=== PATIENT | female | born 1980 | race African-American/Black ===

== ENCOUNTER 2017-04-07 11:52 | Inpatient (IN) | payer SELFPAY ==
[~2017-04-07] VITALS: Ht 165.1 cm; Wt 89.4 kg
[~2017-04-07 11:52] MED LIST: SULF-165 PO
[2017-04-07] MEDS ORDERED: ACETAMINOPHEN 325MG TABLET PO STA (12:41)
[2017-04-07] MEDS ORDERED: MORPHINE SULFATE 4 MG/ML CPJ (NOT FOR IM USE) IV STA (12:41)
[2017-04-07] MEDS ORDERED: ONDANSETRON HCL 4MG/2ML VIAL IV STA (12:41)
[2017-04-07] MEDS ORDERED: SODIUM CHLORIDE 0.9% 1000ML BAG (SEPSIS BOLUS) IV ONE (12:45)
[2017-04-07] MEDS ORDERED: VANCOMYCIN 1 G PREMIX 200 ML IV ONE (12:45)
[2017-04-07] MEDS ORDERED: PIPERACILLIN/TAZ 3.375G PREMIX 50 ML IV ONE (12:45)
[2017-04-07 13:07] LABS: BASOPHILS % 0.5 % (0.0-2.0); EOSINOPHILS % 0.6 % (0.0-5.0); HEMATOCRIT. 33.2 % (36.0-48.0); HEMOGLOBIN. 10.9 g/dL (12.0-16.0); LYMPHOCYTES % 10.2 % (20.0-50.0); MEAN CORPUSCULAR HEMOGLOBIN 26.7 pg (28.0-32.0); MEAN CORPUSCULAR VOLUME 81.4 fL (81.0-99.0); MEAN PLATELET VOLUME 6.6 fl (7.4-10.4); MONOCYTES % 7.6 % (2.0-8.0); NEUTROPHILS % 81.1 % (40.0-76.0); PLATELET 726 x1000/uL (130-400); RED BLOOD CELL COUNT 4.08 mill/uL (4.2-5.4); RED CELL DISTRIBUTION WIDTH 17.8 % (11.6-14.6)
[2017-04-07 13:15] LABS: HCG SCREEN NEGATIVE; INR 1.1; PROTHROMBIN TIME 11.7 sec
[2017-04-07 13:22] LABS: CARBON DIOXIDE 26 mEq/L (21-32); CHLORIDE 99 mEq/L (98-107)
[2017-04-07] MEDS ORDERED: CLINDAMYCIN 600 MG in DEXTROSE 5% WATER 50 ML IV ONE (14:30)
[2017-04-07 14:52] LABS: CLARITY URINE CLEAR (CLEAR); COLOR URINE YELLOW (YELLOW); GLUCOSE URINE NEGATIVE (NEGATIVE); KETONES URINE NEGATIVE (NEGATIVE); LEUKOCYTE ESTERASE URINE 3+ (NEGATIVE); NITRITE URINE POSITIVE (NEGATIVE); OCCULT BLOOD URINE NEGATIVE (NEGATIVE); PROTEIN URINE NEGATIVE (NEGATIVE); SPECIFIC GRAVITY URINE 1.007 (1.005-1.030); UROBILINOGEN URINE 0.2 E.U./dL (0.2-1.0)
[2017-04-07 23:45] VITALS: BP 105/49
[2017-04-08] VITALS: BP 100/48
[2017-04-08] MEDS ORDERED: OXYCONTIN (00:09)
[2017-04-08] MEDS: SODIUM CHLORIDE 0.9% 1,000 ML IV SCH ×2 (01:43→17:55)
[2017-04-08] MEDS: MORPHINE SULFATE 4 MG/ML CPJ (NOT FOR IM USE) IV PRN ×4 (01:44→21:13)
[2017-04-08 04:00] VITALS: BP 94/45
[2017-04-08] MEDS: ZOLPIDEM TARTRATE 5MG TABLET PO PRN (04:04)
[2017-04-08] MEDS: CLINDAMYCIN 300 MG in DEXTROSE 5% WATER 50 ML IV SCH ×4 (05:15→23:55)
[2017-04-08 06:23] LABS: CARBON DIOXIDE 25 mEq/L (21-32); CHLORIDE 105 mEq/L (98-107)
[2017-04-08 06:48] LABS: HEMATOCRIT 28.5 % (36.0-48.0); HEMOGLOBIN 9.1 g/dL (12.0-16.0); MEAN CORPUSCULAR HEMOGLOBIN 26.4 pg (28.0-32.0); PLATELET 581 x1000/uL (130-400); RED BLOOD CELL COUNT 3.44 mill/uL (4.2-5.4); RED CELL DISTRIBUTION WIDTH 17.9 % (11.6-14.6)
[2017-04-08 08:00] VITALS: BP 81/47
[2017-04-08] MEDS ORDERED: ENOXAPARIN 40MG/0.4ML SYR SUBCUT SCH (09:00)
[2017-04-08] MEDS: ENOXAPARIN 30MG/0.3ML SYR SUBCUT SCH ×2 (09:31→21:13)
[2017-04-08 12:00] VITALS: BP 85/43
[2017-04-08] MEDS: PIPERACILLIN/TAZ 3.375G PREMIX 50 ML IV SCH ×3 (14:23→23:17)
[2017-04-08 16:00] VITALS: BP 109/62
[2017-04-08] MEDS ORDERED: WARFARIN SODIUM 7.5MG TABLET PO SCH (18:00)
[2017-04-08 20:00] VITALS: BP 94/51
[2017-04-09] VITALS: BP 100/56
[2017-04-09] MEDS: ZOLPIDEM TARTRATE 5MG TABLET PO PRN ×2 (00:19→23:28)
[2017-04-09 04:00] VITALS: BP 101/61
[2017-04-09] MEDS: MORPHINE SULFATE 4 MG/ML CPJ (NOT FOR IM USE) IV PRN ×5 (04:15→23:28)
[2017-04-09] MEDS: PIPERACILLIN/TAZ 3.375G PREMIX 50 ML IV SCH ×4 (05:53→23:28)
[2017-04-09 05:57] LABS: INR 1.1; PROTHROMBIN TIME 11.8 sec
[2017-04-09] MEDS: CLINDAMYCIN 300 MG in DEXTROSE 5% WATER 50 ML IV SCH ×2 (06:26→12:43)
[2017-04-09 08:00] VITALS: BP 105/63
[2017-04-09] MEDS: ENOXAPARIN 30MG/0.3ML SYR SUBCUT SCH ×2 (09:20→20:58)
[2017-04-09 12:00] VITALS: BP 107/58
[2017-04-09 16:00] VITALS: BP 89/45
[2017-04-09] MEDS: SODIUM CHLORIDE 0.9% 1,000 ML IV SCH (17:15)
[2017-04-09] MEDS ORDERED: WARFARIN SODIUM 7.5MG TABLET PO NR (18:00)
[2017-04-09 20:00] VITALS: BP 98/59
[2017-04-09] MEDS: ASCORBIC ACID 250 MG TABLET PO SCH (20:58)
[2017-04-10] VITALS: BP 98/46
[2017-04-10 04:00] VITALS: BP 105/55
[2017-04-10] MEDS: PIPERACILLIN/TAZ 3.375G PREMIX 50 ML IV SCH ×4 (05:07→23:37)
[2017-04-10] MEDS: MORPHINE SULFATE 4 MG/ML CPJ (NOT FOR IM USE) IV PRN ×5 (05:08→21:54)
[2017-04-10] MEDS: SODIUM CHLORIDE 0.9% 1,000 ML IV SCH ×2 (06:35→20:04)
[2017-04-10 07:26] LABS: INR 1.4
[2017-04-10 08:00] VITALS: BP 95/58
[2017-04-10] MEDS: MULTIVITAMINS,THER W-MINERALS TABLET PO SCH (08:40)
[2017-04-10] MEDS: ZINC SULFATE 220 MG ( 50 ) CAPSULE PO SCH (08:40)
[2017-04-10] MEDS: ASCORBIC ACID 250 MG TABLET PO SCH ×2 (08:40→20:23)
[2017-04-10] MEDS: ENOXAPARIN 30MG/0.3ML SYR SUBCUT SCH ×2 (08:46→20:23)
[2017-04-10] MEDS ORDERED: TRAMADOL 50MG TABLET PO PRN (11:00)
[2017-04-10 12:00] VITALS: BP 127/75
[2017-04-10 16:00] VITALS: BP 108/60
[2017-04-10] MEDS ORDERED: WARFARIN SODIUM 10MG TABLET PO SCH (18:00)
[2017-04-10] MEDS: ACETAMINOPHEN 325MG TABLET PO PRN (20:23)
[2017-04-10] MEDS: ZOLPIDEM TARTRATE 5MG TABLET PO PRN (21:54)
[2017-04-11] VITALS: BP 115/47
[2017-04-11] MEDS: MORPHINE SULFATE 4 MG/ML CPJ (NOT FOR IM USE) IV PRN ×5 (01:58→20:30)
[2017-04-11 04:00] VITALS: BP 122/50
[2017-04-11] MEDS: PIPERACILLIN/TAZ 3.375G PREMIX 50 ML IV SCH ×4 (05:28→23:46)
[2017-04-11 05:50] LABS: INR 1.7; PROTHROMBIN TIME 18.1 sec
[2017-04-11 08:00] VITALS: BP 100/49
[2017-04-11] MEDS: ZINC SULFATE 220 MG ( 50 ) CAPSULE PO SCH (08:44)
[2017-04-11] MEDS: MULTIVITAMINS,THER W-MINERALS TABLET PO SCH (08:44)
[2017-04-11] MEDS: ASCORBIC ACID 250 MG TABLET PO SCH ×2 (08:44→20:31)
[2017-04-11] MEDS: ENOXAPARIN 30MG/0.3ML SYR SUBCUT SCH ×2 (08:45→20:34)
[2017-04-11] MEDS: SODIUM CHLORIDE 0.9% 1,000 ML IV SCH (11:58)
[2017-04-11 12:00] VITALS: BP 101/59
[2017-04-11] MEDS: ONDANSETRON HCL 4MG/2ML VIAL IV PRN (12:49)
[2017-04-11 16:00] VITALS: BP 99/52
[2017-04-11] MEDS ORDERED: WARFARIN SODIUM 7.5MG TABLET PO SCH (18:00)
[2017-04-11 20:00] VITALS: BP 103/47
[2017-04-11] MEDS: ZOLPIDEM TARTRATE 5MG TABLET PO PRN (23:46)
[2017-04-12] VITALS: BP 99/55
[2017-04-12] MEDS: MORPHINE SULFATE 4 MG/ML CPJ (NOT FOR IM USE) IV PRN ×6 (01:15→22:15)
[2017-04-12] MEDS: SODIUM CHLORIDE 0.9% 1,000 ML IV SCH ×2 (01:23→23:22)
[2017-04-12 02:02] LABS: BASOPHILS % 0.9 % (0.0-2.0); EOSINOPHILS % 2.5 % (0.0-5.0); HEMATOCRIT. 25.9 % (36.0-48.0); HEMOGLOBIN. 8.4 g/dL (12.0-16.0); LYMPHOCYTES % 15.8 % (20.0-50.0); MEAN CORPUSCULAR HEMOGLOBIN 26.6 pg (28.0-32.0); MEAN PLATELET VOLUME 6.8 fl (7.4-10.4); MONOCYTES % 10.7 % (2.0-8.0); NEUTROPHILS % 70.1 % (40.0-76.0); PLATELET 607 x1000/uL (130-400); RED BLOOD CELL COUNT 3.15 mill/uL (4.2-5.4); RED CELL DISTRIBUTION WIDTH 17.3 % (11.6-14.6)
[2017-04-12 02:33] LABS: CARBON DIOXIDE 29 mEq/L (21-32); CHLORIDE 105 mEq/L (98-107)
[2017-04-12] MEDS: ACETAMINOPHEN 325MG TABLET PO PRN (03:56)
[2017-04-12 04:00] VITALS: BP 102/47
[2017-04-12] MEDS: PIPERACILLIN/TAZ 3.375G PREMIX 50 ML IV SCH ×3 (05:24→17:58)
[2017-04-12 07:18] LABS: INR 3.1; PROTHROMBIN TIME 32.7 sec
[2017-04-12 08:00] VITALS: BP 99/57
[2017-04-12] MEDS: ASCORBIC ACID 250 MG TABLET PO SCH ×2 (08:15→21:06)
[2017-04-12] MEDS: ZINC SULFATE 220 MG ( 50 ) CAPSULE PO SCH (08:15)
[2017-04-12] MEDS: MULTIVITAMINS,THER W-MINERALS TABLET PO SCH (08:15)
[2017-04-12] MEDS: ENOXAPARIN 30MG/0.3ML SYR SUBCUT SCH (08:21)
[2017-04-12] MEDS: ONDANSETRON HCL 4MG/2ML VIAL IV PRN (09:17)
[2017-04-12 12:00] VITALS: BP 120/75
[2017-04-12 16:00] VITALS: BP 103/55
[2017-04-12 20:00] VITALS: BP 105/57
[2017-04-13] VITALS: BP 104/48
[2017-04-13] MEDS: PIPERACILLIN/TAZ 3.375G PREMIX 50 ML IV SCH ×4 (00:02→17:07)
[2017-04-13] MEDS: ZOLPIDEM TARTRATE 5MG TABLET PO PRN (00:06)
[2017-04-13 04:00] VITALS: BP 104/67
[2017-04-13 07:09] LABS: PROTHROMBIN TIME 31.6 sec
[2017-04-13] MEDS: ACETAMINOPHEN 325MG TABLET PO PRN (07:12)
[2017-04-13 08:00] VITALS: BP 107/56
[2017-04-13] MEDS: MORPHINE SULFATE 2 MG/ML CPJ (NOT FOR IM USE) IV PRN ×4 (08:40→21:16)
[2017-04-13] MEDS: ASCORBIC ACID 250 MG TABLET PO SCH ×2 (08:41→20:34)
[2017-04-13] MEDS: MULTIVITAMINS,THER W-MINERALS TABLET PO SCH (08:41)
[2017-04-13] MEDS: ZINC SULFATE 220 MG ( 50 ) CAPSULE PO SCH (08:41)
[2017-04-13 12:00] VITALS: BP 103/58
[2017-04-13 16:00] VITALS: BP 96/65
[2017-04-13] MEDS: SODIUM CHLORIDE 0.9% 1,000 ML IV SCH (17:08)
[2017-04-13] MEDS ORDERED: WARFARIN SODIUM 3MG TABLET PO NR (18:00)
[2017-04-13 20:46] VITALS: BP 117/68
[2017-04-14] VITALS (7 sets, daily range): BP systolic 90–125; BP diastolic 49–86
[2017-04-14] MEDS: PIPERACILLIN/TAZ 3.375G PREMIX 50 ML IV SCH ×5 (00:33→23:32)
[2017-04-14] MEDS: MORPHINE SULFATE 2 MG/ML CPJ (NOT FOR IM USE) IV PRN ×6 (01:12→22:41)
[2017-04-14] MEDS: SODIUM CHLORIDE 0.9% 1,000 ML IV SCH ×2 (05:23→17:11)
[2017-04-14 07:40] LABS: INR 2.4; PROTHROMBIN TIME 25.1 sec
[2017-04-14] MEDS: MULTIVITAMINS,THER W-MINERALS TABLET PO SCH (08:46)
[2017-04-14] MEDS: ZINC SULFATE 220 MG ( 50 ) CAPSULE PO SCH (08:46)
[2017-04-14] MEDS: ASCORBIC ACID 250 MG TABLET PO SCH ×2 (08:47→23:30)
[2017-04-14] MEDS ORDERED: WARFARIN SODIUM 3MG TABLET PO NR (18:00)
[2017-04-15] VITALS: BP 111/59
[2017-04-15] MEDS: MORPHINE SULFATE 2 MG/ML CPJ (NOT FOR IM USE) IV PRN ×5 (03:00→21:59)
[2017-04-15 04:00] VITALS: BP 95/50
[2017-04-15] MEDS: PIPERACILLIN/TAZ 3.375G PREMIX 50 ML IV SCH ×3 (05:25→18:15)
[2017-04-15 06:07] LABS: INR 2.3; PROTHROMBIN TIME 23.9 sec
[2017-04-15] MEDS: SODIUM CHLORIDE 0.9% 1,000 ML IV SCH ×2 (06:23→19:02)
[2017-04-15 08:15] VITALS: BP 110/58
[2017-04-15] MEDS: ASCORBIC ACID 250 MG TABLET PO SCH ×2 (09:56→21:59)
[2017-04-15] MEDS: ZINC SULFATE 220 MG ( 50 ) CAPSULE PO SCH (09:56)
[2017-04-15] MEDS: MULTIVITAMINS,THER W-MINERALS TABLET PO SCH (09:56)
[2017-04-15 12:15] VITALS: BP 114/63
[2017-04-15 16:00] VITALS: BP 114/62
[2017-04-15] MEDS ORDERED: WARFARIN SODIUM 3MG TABLET PO SCH (18:00)
[2017-04-15 20:00] VITALS: BP 101/52
[2017-04-16] VITALS: BP 110/53
[2017-04-16] MEDS: PIPERACILLIN/TAZ 3.375G PREMIX 50 ML IV SCH ×5 (00:04→23:44)
[2017-04-16] MEDS: MORPHINE SULFATE 2 MG/ML CPJ (NOT FOR IM USE) IV PRN ×6 (02:00→23:44)
[2017-04-16 04:00] VITALS: BP 106/55
[2017-04-16 07:29] LABS: INR 2.1; PROTHROMBIN TIME 22.4 sec
[2017-04-16 07:52] VITALS: BP 110/60
[2017-04-16] MEDS: ZINC SULFATE 220 MG ( 50 ) CAPSULE PO SCH (09:30)
[2017-04-16] MEDS: ASCORBIC ACID 250 MG TABLET PO SCH ×2 (09:30→21:50)
[2017-04-16] MEDS: MULTIVITAMINS,THER W-MINERALS TABLET PO SCH (09:30)
[2017-04-16] MEDS: SODIUM CHLORIDE 0.9% 1,000 ML IV SCH ×2 (11:09→21:50)
[2017-04-16 12:00] VITALS: BP 109/64
[2017-04-16 16:00] VITALS: BP 104/52
[2017-04-16 17:57] LABS: BASOPHILS % 0.7 % (0.0-2.0); EOSINOPHILS % 2.9 % (0.0-5.0); HEMATOCRIT. 31.3 % (36.0-48.0); HEMOGLOBIN. 10.3 g/dL (12.0-16.0); LYMPHOCYTES % 22.5 % (20.0-50.0); MEAN CORPUSCULAR VOLUME 82.2 fL (81.0-99.0); MEAN PLATELET VOLUME 6.8 fl (7.4-10.4); MONOCYTES % 7.3 % (2.0-8.0); NEUTROPHILS % 66.6 % (40.0-76.0); PLATELET 662 x1000/uL (130-400); RED BLOOD CELL COUNT 3.81 mill/uL (4.2-5.4); RED CELL DISTRIBUTION WIDTH 18.2 % (11.6-14.6)
[2017-04-16 17:59] LABS: CARBON DIOXIDE 27 mEq/L (21-32); CHLORIDE 104 mEq/L (98-107)
[2017-04-16] MEDS ORDERED: WARFARIN SODIUM 3MG TABLET PO SCH (18:00)
[2017-04-16 20:00] VITALS: BP 114/63
[2017-04-17] VITALS (7 sets, daily range): BP systolic 93–115; BP diastolic 50–66
[2017-04-17] MEDS: PIPERACILLIN/TAZ 3.375G PREMIX 50 ML IV SCH ×4 (05:51→23:10)
[2017-04-17] MEDS: MORPHINE SULFATE 2 MG/ML CPJ (NOT FOR IM USE) IV PRN ×4 (05:56→22:02)
[2017-04-17 06:25] LABS: INR 2.2; PROTHROMBIN TIME 22.6 sec
[2017-04-17] MEDS: ZINC SULFATE 220 MG ( 50 ) CAPSULE PO SCH (08:53)
[2017-04-17] MEDS: ASCORBIC ACID 250 MG TABLET PO SCH ×2 (08:53→21:23)
[2017-04-17] MEDS: MULTIVITAMINS,THER W-MINERALS TABLET PO SCH (08:53)
[2017-04-17] MEDS: SODIUM CHLORIDE 0.9% 1,000 ML IV SCH (17:53)
[2017-04-17] MEDS: WARFARIN SODIUM 3MG TABLET PO SCH (17:55)
[2017-04-18] VITALS: BP 110/59
[2017-04-18] MEDS: SODIUM CHLORIDE 0.9% 1,000 ML IV SCH ×2 (00:33→10:59)
[2017-04-18] MEDS: MORPHINE SULFATE 2 MG/ML CPJ (NOT FOR IM USE) IV PRN ×2 (02:29→06:23)
[2017-04-18 04:00] VITALS: BP 115/60
[2017-04-18] MEDS: PIPERACILLIN/TAZ 3.375G PREMIX 50 ML IV SCH ×3 (05:41→17:22)
[2017-04-18 08:07] VITALS: BP 106/62
[2017-04-18] MEDS: MULTIVITAMINS,THER W-MINERALS TABLET PO SCH (08:18)
[2017-04-18] MEDS: ASCORBIC ACID 250 MG TABLET PO SCH ×2 (08:18→21:20)
[2017-04-18] MEDS: ZINC SULFATE 220 MG ( 50 ) CAPSULE PO SCH (08:18)
[2017-04-18] MEDS: OXYCODONE HCL 10MG TABLET SR 12HR PO SCH ×2 (10:59→21:21)
[2017-04-18 12:00] VITALS: BP 115/61
[2017-04-18 16:00] VITALS: BP 115/74
[2017-04-18] MEDS: WARFARIN SODIUM 3MG TABLET PO SCH (17:22)
[2017-04-18 20:00] VITALS: BP 105/57
[2017-04-19] VITALS (7 sets, daily range): BP systolic 100–116; BP diastolic 49–66
[2017-04-19] MEDS: PIPERACILLIN/TAZ 3.375G PREMIX 50 ML IV SCH ×5 (00:08→23:56)
[2017-04-19] MEDS: SODIUM CHLORIDE 0.9% 1,000 ML IV SCH ×2 (04:10→18:11)
[2017-04-19] MEDS: ZINC SULFATE 220 MG ( 50 ) CAPSULE PO SCH (08:31)
[2017-04-19] MEDS: ASCORBIC ACID 250 MG TABLET PO SCH ×2 (08:31→22:15)
[2017-04-19] MEDS: MULTIVITAMINS,THER W-MINERALS TABLET PO SCH (08:31)
[2017-04-19] MEDS: OXYCODONE HCL 10MG TABLET SR 12HR PO SCH ×3 (08:32→22:15)
[2017-04-19] MEDS: WARFARIN SODIUM 3MG TABLET PO SCH (18:10)
[2017-04-19] MEDS: MICONAZOLE NITRATE 100MG VAG SUPP VG SCH (22:16)
[2017-04-20] VITALS (7 sets, daily range): BP systolic 101–134; BP diastolic 49–90
[2017-04-20 06:11] LABS: INR 2.3; PROTHROMBIN TIME 23.6 sec
[2017-04-20] MEDS: PIPERACILLIN/TAZ 3.375G PREMIX 50 ML IV SCH ×4 (06:28→23:08)
[2017-04-20] MEDS: OXYCODONE HCL 10MG TABLET SR 12HR PO SCH ×3 (06:29→23:00)
[2017-04-20] MEDS: SODIUM CHLORIDE 0.9% 1,000 ML IV SCH ×2 (06:48→18:59)
[2017-04-20] MEDS: MULTIVITAMINS,THER W-MINERALS TABLET PO SCH (08:49)
[2017-04-20] MEDS: ZINC SULFATE 220 MG ( 50 ) CAPSULE PO SCH (08:49)
[2017-04-20] MEDS: ASCORBIC ACID 250 MG TABLET PO SCH ×2 (08:49→23:00)
[2017-04-20] MEDS: WARFARIN SODIUM 3MG TABLET PO SCH (17:40)
[2017-04-20] MEDS: MICONAZOLE NITRATE 100MG VAG SUPP VG SCH (21:00)
[2017-04-21] VITALS: BP 102/63
[2017-04-21 04:00] VITALS: BP 111/66
[2017-04-21] MEDS: OXYCODONE HCL 10MG TABLET SR 12HR PO SCH ×3 (06:27→22:00)
[2017-04-21] MEDS: PIPERACILLIN/TAZ 3.375G PREMIX 50 ML IV SCH ×3 (06:28→17:33)
[2017-04-21] MEDS: SODIUM CHLORIDE 0.9% 1,000 ML IV SCH (06:28)
[2017-04-21 08:00] VITALS: BP 103/59
[2017-04-21] MEDS: ASCORBIC ACID 250 MG TABLET PO SCH ×2 (08:59→21:57)
[2017-04-21] MEDS: ZINC SULFATE 220 MG ( 50 ) CAPSULE PO SCH (08:59)
[2017-04-21] MEDS: MULTIVITAMINS,THER W-MINERALS TABLET PO SCH (08:59)
[2017-04-21 12:00] VITALS: BP 98/60
[2017-04-21 16:00] VITALS: BP 123/97
[2017-04-21] MEDS: WARFARIN SODIUM 3MG TABLET PO SCH (17:33)
[2017-04-21 20:00] VITALS: BP 110/61
[2017-04-21] MEDS: MICONAZOLE NITRATE 100MG VAG SUPP VG SCH (21:00)
[2017-04-22] VITALS: BP 109/61
[2017-04-22] MEDS: SODIUM CHLORIDE 0.9% 1,000 ML IV SCH ×2 (00:50→19:07)
[2017-04-22] MEDS: PIPERACILLIN/TAZ 3.375G PREMIX 50 ML IV SCH ×4 (00:50→17:51)
[2017-04-22 04:00] VITALS: BP 97/63
[2017-04-22] MEDS: OXYCODONE HCL 10MG TABLET SR 12HR PO SCH ×3 (05:51→21:14)
[2017-04-22 07:21] LABS: INR 2.2; PROTHROMBIN TIME 22.9 sec
[2017-04-22 08:00] VITALS: BP 107/64
[2017-04-22] MEDS: ZINC SULFATE 220 MG ( 50 ) CAPSULE PO SCH (08:38)
[2017-04-22] MEDS: ASCORBIC ACID 250 MG TABLET PO SCH ×2 (08:38→21:13)
[2017-04-22] MEDS: MULTIVITAMINS,THER W-MINERALS TABLET PO SCH (08:38)
[2017-04-22 12:00] VITALS: BP 110/66
[2017-04-22 17:39] VITALS: BP 105/66
[2017-04-22] MEDS: WARFARIN SODIUM 3MG TABLET PO SCH (17:51)
[2017-04-22 20:00] VITALS: BP 106/57
[2017-04-22] MEDS: MICONAZOLE NITRATE 100MG VAG SUPP VG SCH (21:00)
[2017-04-23] VITALS: BP 125/71
[2017-04-23] MEDS: PIPERACILLIN/TAZ 3.375G PREMIX 50 ML IV SCH ×5 (00:46→23:16)
[2017-04-23] MEDS: SODIUM CHLORIDE 0.9% 1,000 ML IV SCH ×2 (00:46→10:44)
[2017-04-23 04:00] VITALS: BP 112/62
[2017-04-23] MEDS: OXYCODONE HCL 10MG TABLET SR 12HR PO SCH ×3 (05:48→21:09)
[2017-04-23 08:02] VITALS: BP 114/76
[2017-04-23] MEDS: MULTIVITAMINS,THER W-MINERALS TABLET PO SCH (08:21)
[2017-04-23] MEDS: ASCORBIC ACID 250 MG TABLET PO SCH ×2 (08:21→21:09)
[2017-04-23] MEDS: ZINC SULFATE 220 MG ( 50 ) CAPSULE PO SCH (08:21)
[2017-04-23 12:00] VITALS: BP 109/63
[2017-04-23 16:03] VITALS: BP 106/68
[2017-04-23 16:08] LABS: BASOPHILS % 1.3 % (0.0-2.0); EOSINOPHILS % 3.9 % (0.0-5.0); HEMOGLOBIN. 9.9 g/dL (12.0-16.0); LYMPHOCYTES % 20.1 % (20.0-50.0); MEAN CORPUSCULAR HEMOGLOBIN 27.1 pg (28.0-32.0); MEAN CORPUSCULAR VOLUME 82.2 fL (81.0-99.0); MEAN PLATELET VOLUME 6.8 fl (7.4-10.4); MONOCYTES % 8.1 % (2.0-8.0); NEUTROPHILS % 66.6 % (40.0-76.0); PLATELET 581 x1000/uL (130-400); RED BLOOD CELL COUNT 3.65 mill/uL (4.2-5.4); RED CELL DISTRIBUTION WIDTH 19.2 % (11.6-14.6)
[2017-04-23 16:20] LABS: CHLORIDE 107 mEq/L (98-107)
[2017-04-23 16:25] LABS: CARBON DIOXIDE 27 mEq/L (21-32)
[2017-04-23] MEDS: WARFARIN SODIUM 3MG TABLET PO SCH (17:11)
[2017-04-23 20:00] VITALS: BP 115/60
[2017-04-23] MEDS: MICONAZOLE NITRATE 100MG VAG SUPP VG SCH (20:54)
[2017-04-24] VITALS: BP 100/56
[2017-04-24] MEDS: SODIUM CHLORIDE 0.9% 1,000 ML IV SCH ×2 (03:33→17:15)
[2017-04-24 04:00] VITALS: BP 109/64
[2017-04-24] MEDS: PIPERACILLIN/TAZ 3.375G PREMIX 50 ML IV SCH ×4 (05:17→23:01)
[2017-04-24] MEDS: OXYCODONE HCL 10MG TABLET SR 12HR PO SCH ×3 (05:20→21:19)
[2017-04-24 06:34] LABS: INR 1.9; PROTHROMBIN TIME 19.6 sec
[2017-04-24 08:00] VITALS: BP 111/75
[2017-04-24] MEDS: ASCORBIC ACID 250 MG TABLET PO SCH ×2 (09:45→21:19)
[2017-04-24] MEDS: ZINC SULFATE 220 MG ( 50 ) CAPSULE PO SCH (09:45)
[2017-04-24] MEDS: MULTIVITAMINS,THER W-MINERALS TABLET PO SCH (09:45)
[2017-04-24 12:00] VITALS: BP 110/59
[2017-04-24 16:00] VITALS: BP 117/61
[2017-04-24] MEDS ORDERED: WARFARIN SODIUM 7.5MG TABLET PO SCH (18:00)
[2017-04-24 20:00] VITALS: BP 115/73
[2017-04-24] MEDS: MICONAZOLE NITRATE 100MG VAG SUPP VG SCH (21:00)
[2017-04-25] VITALS: BP 114/68
[2017-04-25 04:00] VITALS: BP 113/63
[2017-04-25] MEDS: PIPERACILLIN/TAZ 3.375G PREMIX 50 ML IV SCH ×3 (05:13→17:56)
[2017-04-25] MEDS: OXYCODONE HCL 10MG TABLET SR 12HR PO SCH ×3 (05:13→21:57)
[2017-04-25] MEDS: SODIUM CHLORIDE 0.9% 1,000 ML IV SCH ×2 (05:15→20:36)
[2017-04-25 06:40] LABS: INR 1.8; PROTHROMBIN TIME 19.1 sec
[2017-04-25 08:00] VITALS: BP 91/51
[2017-04-25] MEDS: ASCORBIC ACID 250 MG TABLET PO SCH ×2 (09:14→20:36)
[2017-04-25] MEDS: ZINC SULFATE 220 MG ( 50 ) CAPSULE PO SCH (09:14)
[2017-04-25] MEDS: MULTIVITAMINS,THER W-MINERALS TABLET PO SCH (09:14)
[2017-04-25 12:00] VITALS: BP 98/60
[2017-04-25 16:00] VITALS: BP 118/57
[2017-04-25] MEDS ORDERED: WARFARIN SODIUM 7.5MG TABLET PO SCH (18:00)
[2017-04-25 20:00] VITALS: BP 118/62
[2017-04-25] MEDS: MICONAZOLE NITRATE 100MG VAG SUPP VG SCH (20:36)
[2017-04-26 00:09] VITALS: BP 116/66
[2017-04-26] MEDS: PIPERACILLIN/TAZ 3.375G PREMIX 50 ML IV SCH ×4 (01:00→18:45)
[2017-04-26 04:00] VITALS: BP 110/68
[2017-04-26] MEDS: OXYCODONE HCL 10MG TABLET SR 12HR PO SCH ×3 (06:35→21:38)
[2017-04-26 07:27] LABS: INR 2.1; PROTHROMBIN TIME 21.5 sec
[2017-04-26 08:09] VITALS: BP 108/60
[2017-04-26] MEDS: ZINC SULFATE 220 MG ( 50 ) CAPSULE PO SCH (08:25)
[2017-04-26] MEDS: MULTIVITAMINS,THER W-MINERALS TABLET PO SCH (08:25)
[2017-04-26] MEDS: ASCORBIC ACID 250 MG TABLET PO SCH ×2 (08:25→21:37)
[2017-04-26 12:00] VITALS: BP 110/59
[2017-04-26] MEDS: SODIUM CHLORIDE 0.9% 1,000 ML IV SCH ×2 (13:59→21:39)
[2017-04-26 16:11] VITALS: BP 101/62
[2017-04-26] MEDS ORDERED: WARFARIN SODIUM 7.5MG TABLET PO SCH (18:00)
[2017-04-26] MEDS: ACETAMINOPHEN 325MG TABLET PO PRN (19:36)
[2017-04-26 20:00] VITALS: BP 101/56
[2017-04-26] MEDS: MICONAZOLE NITRATE 100MG VAG SUPP VG SCH (21:00)
[2017-04-27] VITALS: BP 95/64
[2017-04-27] MEDS: PIPERACILLIN/TAZ 3.375G PREMIX 50 ML IV SCH ×5 (00:06→23:09)
[2017-04-27 04:00] VITALS: BP 109/60
[2017-04-27] MEDS: OXYCODONE HCL 10MG TABLET SR 12HR PO SCH ×3 (05:03→21:20)
[2017-04-27 06:18] LABS: INR 1.9; PROTHROMBIN TIME 19.7 sec
[2017-04-27] MEDS: ASCORBIC ACID 250 MG TABLET PO SCH ×2 (09:14→21:19)
[2017-04-27] MEDS: ZINC SULFATE 220 MG ( 50 ) CAPSULE PO SCH (09:14)
[2017-04-27] MEDS: MULTIVITAMINS,THER W-MINERALS TABLET PO SCH (09:14)
[2017-04-27 09:22] VITALS: BP 119/66
[2017-04-27 12:37] VITALS: BP 104/56
[2017-04-27 16:42] VITALS: BP 105/60
[2017-04-27] MEDS: WARFARIN SODIUM 7.5MG TABLET PO SCH (17:49)
[2017-04-27] MEDS: SODIUM CHLORIDE 0.9% 1,000 ML IV SCH (17:49)
[2017-04-27 20:00] VITALS: BP 106/54
[2017-04-28] VITALS: BP 95/57
[2017-04-28] MEDS: SODIUM CHLORIDE 0.9% 1,000 ML IV SCH ×2 (01:51→08:27)
[2017-04-28 04:00] VITALS: BP 109/69
[2017-04-28] MEDS: PIPERACILLIN/TAZ 3.375G PREMIX 50 ML IV SCH ×3 (05:30→17:19)
[2017-04-28] MEDS: OXYCODONE HCL 10MG TABLET SR 12HR PO SCH ×2 (05:31→13:42)
[2017-04-28 08:08] VITALS: BP 105/60
[2017-04-28] MEDS: MULTIVITAMINS,THER W-MINERALS TABLET PO SCH (08:16)
[2017-04-28] MEDS: ZINC SULFATE 220 MG ( 50 ) CAPSULE PO SCH (08:16)
[2017-04-28] MEDS: ASCORBIC ACID 250 MG TABLET PO SCH ×2 (08:16→22:01)
[2017-04-28 12:00] VITALS: BP 106/58
[2017-04-28 15:24] LABS: BASOPHILS % 1.4 % (0.0-2.0); EOSINOPHILS % 4.2 % (0.0-5.0); HEMATOCRIT. 30.2 % (36.0-48.0); HEMOGLOBIN. 9.9 g/dL (12.0-16.0); LYMPHOCYTES % 19.3 % (20.0-50.0); MEAN CORPUSCULAR HEMOGLOBIN 26.9 pg (28.0-32.0); MEAN CORPUSCULAR VOLUME 82.2 fL (81.0-99.0); MEAN PLATELET VOLUME 7.3 fl (7.4-10.4); MONOCYTES % 8.8 % (2.0-8.0); NEUTROPHILS % 66.3 % (40.0-76.0); PLATELET 550 x1000/uL (130-400); RED BLOOD CELL COUNT 3.67 mill/uL (4.2-5.4); RED CELL DISTRIBUTION WIDTH 18.8 % (11.6-14.6)
[2017-04-28 15:45] LABS: CHLORIDE 105 mEq/L (98-107)
[2017-04-28 16:00] VITALS: BP 112/62
[2017-04-28 16:00] LABS: CARBON DIOXIDE 28 mEq/L (21-32)
[2017-04-28] MEDS: WARFARIN SODIUM 7.5MG TABLET PO SCH (17:19)
[2017-04-28 20:00] VITALS: BP 112/50
[2017-04-28] MEDS: ACETAMINOPHEN 325MG TABLET PO PRN (23:41)
[2017-04-29] VITALS: BP 111/69
[2017-04-29] MEDS: PIPERACILLIN/TAZ 3.375G PREMIX 50 ML IV SCH ×4 (00:26→17:16)
[2017-04-29] MEDS ORDERED: OXYCODONE HCL 10MG TABLET SR 12HR PO SCH (01:00)
[2017-04-29] MEDS: SODIUM CHLORIDE 0.9% 1,000 ML IV SCH ×2 (03:36→17:16)
[2017-04-29 04:00] VITALS: BP 106/64
[2017-04-29 06:54] LABS: INR 2.6; PROTHROMBIN TIME 26.5 sec
[2017-04-29 08:00] VITALS: BP 111/69
[2017-04-29] MEDS: ASCORBIC ACID 250 MG TABLET PO SCH ×2 (09:16→20:52)
[2017-04-29] MEDS: ZINC SULFATE 220 MG ( 50 ) CAPSULE PO SCH (09:16)
[2017-04-29] MEDS: MULTIVITAMINS,THER W-MINERALS TABLET PO SCH (09:16)
[2017-04-29] MEDS: OXYCODONE HCL 10MG TABLET SR 12HR PO SCH ×2 (09:17→17:18)
[2017-04-29 12:30] VITALS: BP 109/63
[2017-04-29 16:00] VITALS: BP 100/53
[2017-04-29] MEDS: WARFARIN SODIUM 3MG TABLET PO SCH (17:17)
[2017-04-29 20:00] VITALS: BP 116/67
[2017-04-30] VITALS: BP 110/74
[2017-04-30] MEDS: PIPERACILLIN/TAZ 3.375G PREMIX 50 ML IV SCH ×3 (00:39→12:50)
[2017-04-30] MEDS: OXYCODONE HCL 10MG TABLET SR 12HR PO SCH ×3 (01:31→18:11)
[2017-04-30 04:00] VITALS: BP 100/61
[2017-04-30] MEDS: SODIUM CHLORIDE 0.9% 1,000 ML IV SCH ×2 (06:57→22:39)
[2017-04-30 08:02] VITALS: BP 114/66
[2017-04-30] MEDS: MULTIVITAMINS,THER W-MINERALS TABLET PO SCH (09:33)
[2017-04-30] MEDS: ZINC SULFATE 220 MG ( 50 ) CAPSULE PO SCH (09:33)
[2017-04-30] MEDS: ASCORBIC ACID 250 MG TABLET PO SCH ×2 (09:33→22:33)
[2017-04-30 12:00] VITALS: BP 108/64
[2017-04-30 16:00] VITALS: BP 99/62
[2017-04-30] MEDS: WARFARIN SODIUM 3MG TABLET PO SCH (18:09)
[2017-04-30 20:00] VITALS: BP 98/55
[2017-05-01] VITALS: BP 116/62
[2017-05-01] MEDS: OXYCODONE HCL 10MG TABLET SR 12HR PO SCH ×3 (03:06→17:47)
[2017-05-01 04:00] VITALS: BP 96/56
[2017-05-01 07:37] LABS: INR 2.2; PROTHROMBIN TIME 23.3 sec
[2017-05-01 08:10] VITALS: BP 107/62
[2017-05-01] MEDS: MULTIVITAMINS,THER W-MINERALS TABLET PO SCH (09:29)
[2017-05-01] MEDS: ZINC SULFATE 220 MG ( 50 ) CAPSULE PO SCH (09:29)
[2017-05-01] MEDS: ASCORBIC ACID 250 MG TABLET PO SCH ×2 (09:29→21:17)
[2017-05-01] MEDS: ONDANSETRON HCL 4MG/2ML VIAL IV PRN (10:39)
[2017-05-01 12:00] VITALS: BP 104/67
[2017-05-01 16:00] VITALS: BP 102/64
[2017-05-01] MEDS: SODIUM CHLORIDE 0.9% 1,000 ML IV SCH (16:50)
[2017-05-01] MEDS: WARFARIN SODIUM 3MG TABLET PO SCH (17:43)
[2017-05-01 20:00] VITALS: BP 112/74
[2017-05-02] VITALS: BP 111/59
[2017-05-02] MEDS: OXYCODONE HCL 10MG TABLET SR 12HR PO SCH ×3 (01:34→17:09)
[2017-05-02 04:00] VITALS: BP 115/60
[2017-05-02] MEDS: SODIUM CHLORIDE 0.9% 1,000 ML IV SCH ×2 (06:46→11:13)
[2017-05-02 08:35] VITALS: BP 115/72
[2017-05-02] MEDS: MULTIVITAMINS,THER W-MINERALS TABLET PO SCH (08:39)
[2017-05-02] MEDS: ZINC SULFATE 220 MG ( 50 ) CAPSULE PO SCH (08:40)
[2017-05-02] MEDS: ASCORBIC ACID 250 MG TABLET PO SCH ×2 (08:40→20:47)
[2017-05-02 12:00] VITALS: BP 101/58
[2017-05-02 16:00] VITALS: BP 106/66
[2017-05-02] MEDS: WARFARIN SODIUM 3MG TABLET PO SCH (17:09)
[2017-05-02 20:00] VITALS: BP 124/86
[2017-05-03] VITALS: BP 102/58
[2017-05-03] MEDS: OXYCODONE HCL 10MG TABLET SR 12HR PO SCH ×3 (01:29→18:05)
[2017-05-03] MEDS: SODIUM CHLORIDE 0.9% 1,000 ML IV SCH ×2 (01:29→17:25)
[2017-05-03 04:00] VITALS: BP 100/90
[2017-05-03 08:08] VITALS: BP 101/58
[2017-05-03] MEDS: ZINC SULFATE 220 MG ( 50 ) CAPSULE PO SCH (09:34)
[2017-05-03] MEDS: ASCORBIC ACID 250 MG TABLET PO SCH ×2 (09:34→21:56)
[2017-05-03] MEDS: MULTIVITAMINS,THER W-MINERALS TABLET PO SCH (09:34)
[2017-05-03 12:06] VITALS: BP 110/58
[2017-05-03 15:58] VITALS: BP 100/63
[2017-05-03] MEDS: WARFARIN SODIUM 3MG TABLET PO SCH (17:25)
[2017-05-03] MEDS: ACETAMINOPHEN 325MG TABLET PO PRN (17:26)
[2017-05-03 20:00] VITALS: BP 104/63
[2017-05-04] VITALS: BP 109/80
[2017-05-04] MEDS ORDERED: OXYCODONE HCL 10MG TABLET SR 12HR PO NR (02:00)
[2017-05-04 04:00] VITALS: BP 113/67
[2017-05-04] MEDS: SODIUM CHLORIDE 0.9% 1,000 ML IV SCH ×2 (06:57→16:29)
[2017-05-04 08:00] VITALS: BP 111/56
[2017-05-04] MEDS: ASCORBIC ACID 250 MG TABLET PO SCH ×2 (09:27→21:26)
[2017-05-04] MEDS: ZINC SULFATE 220 MG ( 50 ) CAPSULE PO SCH (09:28)
[2017-05-04] MEDS: MULTIVITAMINS,THER W-MINERALS TABLET PO SCH (09:28)
[2017-05-04] MEDS: ACETAMINOPHEN 325MG TABLET PO PRN ×2 (09:28→23:43)
[2017-05-04 10:20] LABS: PROTHROMBIN TIME 21.2 sec
[2017-05-04] MEDS: OXYCODONE HCL 10MG TABLET SR 12HR PO SCH ×2 (11:57→20:20)
[2017-05-04 12:00] VITALS: BP 117/81
[2017-05-04 12:26] LABS: EOSINOPHILS % 3.7 % (0.0-5.0); HEMATOCRIT. 30.7 % (36.0-48.0); HEMOGLOBIN. 9.9 g/dL (12.0-16.0); LYMPHOCYTES % 24.7 % (20.0-50.0); MEAN CORPUSCULAR VOLUME 83.6 fL (81.0-99.0); MEAN PLATELET VOLUME 7.6 fl (7.4-10.4); NEUTROPHILS % 61.6 % (40.0-76.0); PLATELET 507 x1000/uL (130-400); RED BLOOD CELL COUNT 3.68 mill/uL (4.2-5.4); RED CELL DISTRIBUTION WIDTH 19.9 % (11.6-14.6)
[2017-05-04 12:39] LABS: CARBON DIOXIDE 25 mEq/L (21-32); CHLORIDE 105 mEq/L (98-107)
[2017-05-04] MEDS: PIPERACILLIN/TAZ 3.375G PREMIX 50 ML IV SCH ×3 (13:31→23:39)
[2017-05-04] MEDS ORDERED: OXYCODONE HCL 10MG TABLET SR 12HR PO SCH (14:00)
[2017-05-04 15:12] LABS: BASOPHILS % 0.9 % (0.0-2.0); EOSINOPHILS % 3.9 % (0.0-5.0); HEMATOCRIT. 32.6 % (36.0-48.0); HEMOGLOBIN. 10.6 g/dL (12.0-16.0); MEAN CORPUSCULAR HEMOGLOBIN 27.2 pg (28.0-32.0); MEAN CORPUSCULAR VOLUME 83.3 fL (81.0-99.0); MEAN PLATELET VOLUME 7.7 fl (7.4-10.4); MONOCYTES % 8.8 % (2.0-8.0); NEUTROPHILS % 64.4 % (40.0-76.0); PLATELET 552 x1000/uL (130-400); RED BLOOD CELL COUNT 3.91 mill/uL (4.2-5.4); RED CELL DISTRIBUTION WIDTH 19.9 % (11.6-14.6)
[2017-05-04 15:16] LABS: CARBON DIOXIDE 28 mEq/L (21-32); CHLORIDE 101 mEq/L (98-107)
[2017-05-04 16:00] VITALS: BP 117/87
[2017-05-04] MEDS ORDERED: WARFARIN SODIUM 7.5MG TABLET PO SCH (18:00)
[2017-05-04 20:00] VITALS: BP 107/64
[2017-05-05] VITALS: BP 101/66
[2017-05-05 04:00] VITALS: BP 119/72
[2017-05-05] MEDS: PIPERACILLIN/TAZ 3.375G PREMIX 50 ML IV SCH ×4 (06:01→23:01)
[2017-05-05] MEDS: OXYCODONE HCL 10MG TABLET SR 12HR PO SCH ×3 (06:03→23:03)
[2017-05-05] MEDS: SODIUM CHLORIDE 0.9% 1,000 ML IV SCH ×2 (06:05→23:04)
[2017-05-05 08:00] VITALS: BP 114/61
[2017-05-05] MEDS: ASCORBIC ACID 250 MG TABLET PO SCH ×2 (09:40→20:44)
[2017-05-05] MEDS: MULTIVITAMINS,THER W-MINERALS TABLET PO SCH (09:40)
[2017-05-05] MEDS: ZINC SULFATE 220 MG ( 50 ) CAPSULE PO SCH (09:40)
[2017-05-05 12:00] VITALS: BP 118/64
[2017-05-05 16:00] VITALS: BP 106/58
[2017-05-05] MEDS ORDERED: WARFARIN SODIUM 7.5MG TABLET PO SCH (18:00)
[2017-05-05 20:00] VITALS: BP 105/51
[2017-05-06] VITALS: BP 122/63
[2017-05-06 04:00] VITALS: BP 110/80
[2017-05-06] MEDS: PIPERACILLIN/TAZ 3.375G PREMIX 50 ML IV SCH ×4 (06:14→23:35)
[2017-05-06] MEDS: OXYCODONE HCL 10MG TABLET SR 12HR PO SCH ×3 (06:15→22:16)
[2017-05-06 08:00] VITALS: BP 113/63
[2017-05-06] MEDS: ZINC SULFATE 220 MG ( 50 ) CAPSULE PO SCH (09:32)
[2017-05-06] MEDS: ASCORBIC ACID 250 MG TABLET PO SCH ×2 (09:32→22:15)
[2017-05-06] MEDS: MULTIVITAMINS,THER W-MINERALS TABLET PO SCH (09:32)
[2017-05-06 12:00] VITALS: BP 107/60
[2017-05-06 16:00] VITALS: BP 130/86
[2017-05-06] MEDS ORDERED: WARFARIN SODIUM 3MG TABLET PO SCH (18:00)
[2017-05-06 20:00] VITALS: BP 99/55
[2017-05-07] VITALS: BP 112/61
[2017-05-07 04:00] VITALS: BP 99/48
[2017-05-07] MEDS: PIPERACILLIN/TAZ 3.375G PREMIX 50 ML IV SCH ×3 (05:28→18:43)
[2017-05-07] MEDS: OXYCODONE HCL 10MG TABLET SR 12HR PO SCH ×3 (06:00→18:17)
[2017-05-07 08:00] VITALS: BP_SYST 102; BP_SYST 108; BP_DIAS 64; BP_DIAS 80
[2017-05-07 08:35] LABS: INR 1.9; PROTHROMBIN TIME 19.6 sec
[2017-05-07] MEDS: MULTIVITAMINS,THER W-MINERALS TABLET PO SCH (09:01)
[2017-05-07] MEDS: ZINC SULFATE 220 MG ( 50 ) CAPSULE PO SCH (09:02)
[2017-05-07] MEDS: ASCORBIC ACID 250 MG TABLET PO SCH ×2 (09:02→20:38)
[2017-05-07 12:00] VITALS: BP 107/66
[2017-05-07 16:00] VITALS: BP 103/51
[2017-05-07] MEDS ORDERED: WARFARIN SODIUM 7.5MG TABLET PO NR (18:00)
[2017-05-07] MEDS ORDERED: SODIUM HYPOCHLORITE 0.125% 473ML SOLUTION TOP SCH (18:00)
[2017-05-07 20:00] VITALS: BP 139/84
[2017-05-08] VITALS: BP 142/75
[2017-05-08] MEDS: PIPERACILLIN/TAZ 3.375G PREMIX 50 ML IV SCH ×4 (00:38→18:23)
[2017-05-08] MEDS: OXYCODONE HCL 10MG TABLET SR 12HR PO SCH ×3 (02:16→18:25)
[2017-05-08 05:22] LABS: PROTHROMBIN TIME 20.5 sec
[2017-05-08 08:00] VITALS: BP 102/56
[2017-05-08] MEDS: MULTIVITAMINS,THER W-MINERALS TABLET PO SCH (09:57)
[2017-05-08] MEDS: ZINC SULFATE 220 MG ( 50 ) CAPSULE PO SCH (09:57)
[2017-05-08 12:00] VITALS: BP 95/57
[2017-05-08 16:00] VITALS: BP 114/56
[2017-05-08] MEDS: WARFARIN SODIUM 7.5MG TABLET PO SCH (18:25)
[2017-05-08 20:00] VITALS: BP 101/68
[2017-05-08] MEDS: SODIUM HYPOCHLORITE 0.125% 473ML SOLUTION TOP SCH (21:29)
[2017-05-09] VITALS: BP 110/76
[2017-05-09] MEDS: PIPERACILLIN/TAZ 3.375G PREMIX 50 ML IV SCH ×4 (00:24→18:46)
[2017-05-09] MEDS: OXYCODONE HCL 10MG TABLET SR 12HR PO SCH ×3 (02:23→18:41)
[2017-05-09 04:00] VITALS: BP 103/52
[2017-05-09 08:00] VITALS: BP 94/53
[2017-05-09 12:00] VITALS: BP 109/68
[2017-05-09 16:00] VITALS: BP 119/73
[2017-05-09] MEDS: WARFARIN SODIUM 7.5MG TABLET PO SCH (18:42)
[2017-05-09 20:00] VITALS: BP 111/63
[2017-05-10] VITALS: BP 100/52
[2017-05-10] MEDS: PIPERACILLIN/TAZ 3.375G PREMIX 50 ML IV SCH ×3 (01:54→18:40)
[2017-05-10] MEDS: OXYCODONE HCL 10MG TABLET SR 12HR PO SCH ×3 (01:54→18:34)
[2017-05-10 04:00] VITALS: BP 106/60
[2017-05-10 08:00] VITALS: BP 108/70
[2017-05-10] MEDS: SODIUM HYPOCHLORITE 0.125% 473ML SOLUTION TOP SCH (08:33)
[2017-05-10 09:07] LABS: PROTHROMBIN TIME 20.8 sec
[2017-05-10 12:32] LABS: BASOPHILS % 1.1 % (0.0-2.0); EOSINOPHILS % 5.5 % (0.0-5.0); HEMATOCRIT. 32.5 % (36.0-48.0); HEMOGLOBIN. 10.4 g/dL (12.0-16.0); LYMPHOCYTES % 31.6 % (20.0-50.0); MEAN CORPUSCULAR HEMOGLOBIN 26.8 pg (28.0-32.0); MEAN CORPUSCULAR VOLUME 84.2 fL (81.0-99.0); MEAN PLATELET VOLUME 7.7 fl (7.4-10.4); MONOCYTES % 10.6 % (2.0-8.0); NEUTROPHILS % 51.2 % (40.0-76.0); PLATELET 474 x1000/uL (130-400); RED BLOOD CELL COUNT 3.86 mill/uL (4.2-5.4); RED CELL DISTRIBUTION WIDTH 20.3 % (11.6-14.6)
[2017-05-10 12:49] LABS: CARBON DIOXIDE 25 mEq/L (21-32); CHLORIDE 103 mEq/L (98-107)
[2017-05-10] MEDS: WARFARIN SODIUM 7.5MG TABLET PO SCH (18:40)
[2017-05-10 20:00] VITALS: BP 102/64
[2017-05-11] VITALS: BP 102/62
[2017-05-11] MEDS: PIPERACILLIN/TAZ 3.375G PREMIX 50 ML IV SCH ×4 (00:57→19:33)
[2017-05-11] MEDS: OXYCODONE HCL 10MG TABLET SR 12HR PO SCH ×3 (03:18→17:28)
[2017-05-11 04:00] VITALS: BP 102/67
[2017-05-11 08:00] VITALS: BP 103/68
[2017-05-11 12:00] VITALS: BP 108/65
[2017-05-11] MEDS: SODIUM HYPOCHLORITE 0.125% 473ML SOLUTION TOP SCH (14:19)
[2017-05-11 16:00] VITALS: BP 102/45
[2017-05-11] MEDS: WARFARIN SODIUM 7.5MG TABLET PO SCH (17:28)
[2017-05-11 20:00] VITALS: BP 110/59
[2017-05-12] VITALS: BP 108/74
[2017-05-12] MEDS: PIPERACILLIN/TAZ 3.375G PREMIX 50 ML IV SCH ×4 (02:04→19:33)
[2017-05-12] MEDS: OXYCODONE HCL 10MG TABLET SR 12HR PO SCH ×3 (02:04→18:22)
[2017-05-12 04:00] VITALS: BP 115/67
[2017-05-12 08:00] VITALS: BP 115/66
[2017-05-12 12:00] VITALS: BP 124/70
[2017-05-12 16:00] VITALS: BP 101/54
[2017-05-12] MEDS: WARFARIN SODIUM 7.5MG TABLET PO SCH (18:22)
[2017-05-12 20:00] VITALS: BP 128/65
[2017-05-13] VITALS: BP 120/70
[2017-05-13] MEDS: PIPERACILLIN/TAZ 3.375G PREMIX 50 ML IV SCH ×4 (01:06→20:14)
[2017-05-13] MEDS: OXYCODONE HCL 10MG TABLET SR 12HR PO SCH ×3 (01:27→18:33)
[2017-05-13 04:00] VITALS: BP 107/68
[2017-05-13 07:59] LABS: INR 2.1; PROTHROMBIN TIME 22.1 sec
[2017-05-13 08:00] VITALS: BP 102/49
[2017-05-13] MEDS: SODIUM HYPOCHLORITE 0.125% 473ML SOLUTION TOP SCH ×2 (11:19→11:24)
[2017-05-13 12:00] VITALS: BP 110/52
[2017-05-13 16:00] VITALS: BP 117/66
[2017-05-13] MEDS: WARFARIN SODIUM 7.5MG TABLET PO SCH (18:33)
[2017-05-13 20:00] VITALS: BP 131/81
[2017-05-14] VITALS: BP 114/62
[2017-05-14] MEDS: PIPERACILLIN/TAZ 3.375G PREMIX 50 ML IV SCH ×4 (02:20→19:23)
[2017-05-14] MEDS: OXYCODONE HCL 10MG TABLET SR 12HR PO SCH ×3 (02:20→18:33)
[2017-05-14 04:00] VITALS: BP 101/63
[2017-05-14 08:00] VITALS: BP 114/48
[2017-05-14 12:00] VITALS: BP 106/58
[2017-05-14] MEDS: SODIUM HYPOCHLORITE 0.125% 473ML SOLUTION TOP SCH (12:16)
[2017-05-14 16:00] VITALS: BP 113/56
[2017-05-14] MEDS: DIPHENHYDRAMINE 50MG CAPSULE PO PRN (17:24)
[2017-05-14] MEDS: WARFARIN SODIUM 7.5MG TABLET PO SCH (18:32)
[2017-05-14 20:00] VITALS: BP 100/47
[2017-05-15] VITALS (7 sets, daily range): BP systolic 96–134; BP diastolic 48–71
[2017-05-15] MEDS: OXYCODONE HCL 10MG TABLET SR 12HR PO SCH ×3 (01:52→21:23)
[2017-05-15] MEDS: PIPERACILLIN/TAZ 3.375G PREMIX 50 ML IV SCH ×4 (01:53→21:21)
[2017-05-15] MEDS: MULTIVITAMINS,THER W-MINERALS TABLET PO SCH (08:21)
[2017-05-15] MEDS: SODIUM HYPOCHLORITE 0.125% 473ML SOLUTION TOP SCH (10:13)
[2017-05-15] MEDS: DIPHENHYDRAMINE 50MG CAPSULE PO PRN (16:25)
[2017-05-15] MEDS: WARFARIN SODIUM 7.5MG TABLET PO SCH (19:17)
[2017-05-16] VITALS: BP 115/63
[2017-05-16] MEDS: PIPERACILLIN/TAZ 3.375G PREMIX 50 ML IV SCH ×4 (00:54→18:06)
[2017-05-16] MEDS: DIPHENHYDRAMINE 50MG CAPSULE PO PRN ×3 (03:38→22:26)
[2017-05-16 04:00] VITALS: BP 99/65
[2017-05-16] MEDS: OXYCODONE HCL 10MG TABLET SR 12HR PO SCH ×3 (05:00→21:30)
[2017-05-16 08:00] VITALS: BP 118/73
[2017-05-16] MEDS: MULTIVITAMINS,THER W-MINERALS TABLET PO SCH (08:43)
[2017-05-16] MEDS: SODIUM HYPOCHLORITE 0.125% 473ML SOLUTION TOP SCH (09:39)
[2017-05-16 12:00] VITALS: BP 105/51
[2017-05-16 16:00] VITALS: BP 113/53
[2017-05-16] MEDS ORDERED: WARFARIN SODIUM 7.5MG TABLET PO SCH (18:00)
[2017-05-16 20:00] VITALS: BP 113/67
[2017-05-17] VITALS (7 sets, daily range): BP systolic 99–117; BP diastolic 57–65
[2017-05-17] MEDS: PIPERACILLIN/TAZ 3.375G PREMIX 50 ML IV SCH ×4 (00:16→18:51)
[2017-05-17] MEDS: OXYCODONE HCL 10MG TABLET SR 12HR PO SCH ×3 (05:41→21:24)
[2017-05-17 08:48] LABS: INR 1.7
[2017-05-17] MEDS: MULTIVITAMINS,THER W-MINERALS TABLET PO SCH (08:48)
[2017-05-17] MEDS: SODIUM HYPOCHLORITE 0.125% 473ML SOLUTION TOP SCH (16:31)
[2017-05-17] MEDS: WARFARIN SODIUM 10MG TABLET PO SCH (18:52)
[2017-05-17] MEDS: DIPHENHYDRAMINE 50MG CAPSULE PO PRN (21:23)
[2017-05-18] VITALS: BP 123/67
[2017-05-18] MEDS: PIPERACILLIN/TAZ 3.375G PREMIX 50 ML IV SCH ×4 (01:58→20:09)
[2017-05-18 04:00] VITALS: BP 101/56
[2017-05-18] MEDS: OXYCODONE HCL 10MG TABLET SR 12HR PO SCH ×3 (06:37→22:23)
[2017-05-18 08:00] VITALS: BP 103/54
[2017-05-18] MEDS: MULTIVITAMINS,THER W-MINERALS TABLET PO SCH (11:06)
[2017-05-18 12:00] VITALS: BP 110/63
[2017-05-18 16:00] VITALS: BP 116/75
[2017-05-18] MEDS: SODIUM HYPOCHLORITE 0.125% 473ML SOLUTION TOP SCH (16:38)
[2017-05-18] MEDS: DIPHENHYDRAMINE 50MG CAPSULE PO PRN (17:44)
[2017-05-18] MEDS: WARFARIN SODIUM 10MG TABLET PO SCH (17:45)
[2017-05-18 20:00] VITALS: BP 102/52
[2017-05-19] VITALS: BP 119/72
[2017-05-19] MEDS: PIPERACILLIN/TAZ 3.375G PREMIX 50 ML IV SCH ×4 (01:36→18:35)
[2017-05-19 04:00] VITALS: BP 130/64
[2017-05-19] MEDS: OXYCODONE HCL 10MG TABLET SR 12HR PO SCH ×3 (06:34→22:17)
[2017-05-19 08:00] VITALS: BP 118/64
[2017-05-19] MEDS: MULTIVITAMINS,THER W-MINERALS TABLET PO SCH (08:32)
[2017-05-19] MEDS: SODIUM HYPOCHLORITE 0.125% 473ML SOLUTION TOP SCH (08:32)
[2017-05-19 12:00] VITALS: BP 108/69
[2017-05-19] MEDS: DIPHENHYDRAMINE 50MG CAPSULE PO PRN ×2 (12:35→22:22)
[2017-05-19 16:00] VITALS: BP 98/59
[2017-05-19] MEDS ORDERED: WARFARIN SODIUM 7.5MG TABLET PO SCH (18:00)
[2017-05-19 20:00] VITALS: BP 100/50
[2017-05-20] VITALS: BP 117/54
[2017-05-20] MEDS: PIPERACILLIN/TAZ 3.375G PREMIX 50 ML IV SCH (00:37)
[2017-05-20 04:00] VITALS: BP 101/61
[2017-05-20] MEDS: OXYCODONE HCL 10MG TABLET SR 12HR PO SCH ×3 (06:35→21:34)
[2017-05-20 08:00] VITALS: BP 107/63
[2017-05-20] MEDS: SODIUM HYPOCHLORITE 0.125% 473ML SOLUTION TOP SCH (08:10)
[2017-05-20] MEDS: MULTIVITAMINS,THER W-MINERALS TABLET PO SCH (08:10)
[2017-05-20 10:13] LABS: INR 2.4; PROTHROMBIN TIME 24.7 sec
[2017-05-20 12:00] VITALS: BP 112/54
[2017-05-20] MEDS: DIPHENHYDRAMINE 50MG CAPSULE PO PRN ×2 (13:24→21:32)
[2017-05-20 16:00] VITALS: BP 127/74
[2017-05-20] MEDS ORDERED: WARFARIN SODIUM 7.5MG TABLET PO NR (18:00)
[2017-05-20 20:00] VITALS: BP 115/53
[2017-05-20] MEDS: AMOXICILLIN/POTASSIUM CLAVULANATE 875/125MG TAB PO SCH (21:32)
[2017-05-21] VITALS: BP 116/61
[2017-05-21 04:00] VITALS: BP 110/65
[2017-05-21] MEDS: OXYCODONE HCL 10MG TABLET SR 12HR PO SCH ×3 (05:59→21:53)
[2017-05-21] MEDS: DIPHENHYDRAMINE 50MG CAPSULE PO PRN ×3 (06:38→21:52)
[2017-05-21 07:13] LABS: INR 2.1; PROTHROMBIN TIME 22.2 sec
[2017-05-21 08:00] VITALS: BP 108/62
[2017-05-21] MEDS: SODIUM HYPOCHLORITE 0.125% 473ML SOLUTION TOP SCH (08:56)
[2017-05-21] MEDS: MULTIVITAMINS,THER W-MINERALS TABLET PO SCH (08:56)
[2017-05-21] MEDS: AMOXICILLIN/POTASSIUM CLAVULANATE 875/125MG TAB PO SCH ×2 (08:56→21:52)
[2017-05-21 12:00] VITALS: BP 110/52
[2017-05-21 16:00] VITALS: BP 116/61
[2017-05-21] MEDS ORDERED: WARFARIN SODIUM 7.5MG TABLET PO NR (18:00)
[2017-05-21 20:00] VITALS: BP 108/48
[2017-05-22] VITALS: BP 104/61
[2017-05-22 04:00] VITALS: BP 95/49
[2017-05-22] MEDS: DIPHENHYDRAMINE 50MG CAPSULE PO PRN ×3 (05:27→21:55)
[2017-05-22] MEDS: OXYCODONE HCL 10MG TABLET SR 12HR PO SCH ×3 (05:28→21:56)
[2017-05-22 06:07] LABS: INR 1.9; PROTHROMBIN TIME 20.1 sec
[2017-05-22 08:00] VITALS: BP 107/60
[2017-05-22] MEDS: AMOXICILLIN/POTASSIUM CLAVULANATE 875/125MG TAB PO SCH ×2 (09:30→21:55)
[2017-05-22] MEDS: MULTIVITAMINS,THER W-MINERALS TABLET PO SCH (09:30)
[2017-05-22] MEDS: SODIUM HYPOCHLORITE 0.125% 473ML SOLUTION TOP SCH (09:32)
[2017-05-22 12:00] VITALS: BP 107/68
[2017-05-22 16:00] VITALS: BP 115/65
[2017-05-22] MEDS: WARFARIN SODIUM 10MG TABLET PO SCH (18:11)
[2017-05-22 20:00] VITALS: BP 100/51
[2017-05-23] VITALS: BP 97/58
[2017-05-23 04:00] VITALS: BP 98/52
[2017-05-23] MEDS: OXYCODONE HCL 10MG TABLET SR 12HR PO SCH ×3 (05:39→21:34)
[2017-05-23 08:00] VITALS: BP 120/60
[2017-05-23] MEDS: MULTIVITAMINS,THER W-MINERALS TABLET PO SCH (09:03)
[2017-05-23] MEDS: AMOXICILLIN/POTASSIUM CLAVULANATE 875/125MG TAB PO SCH ×2 (09:03→21:34)
[2017-05-23 12:00] VITALS: BP 113/65
[2017-05-23 16:00] VITALS: BP 113/65
[2017-05-23] MEDS: WARFARIN SODIUM 10MG TABLET PO SCH (18:22)
[2017-05-23] MEDS: DIPHENHYDRAMINE 50MG CAPSULE PO PRN (19:59)
[2017-05-23 20:00] VITALS: BP 108/66
[2017-05-24] VITALS: BP 92/50
[2017-05-24 04:00] VITALS: BP 94/62
[2017-05-24] MEDS: OXYCODONE HCL 10MG TABLET SR 12HR PO SCH ×3 (05:14→21:44)
[2017-05-24 08:00] VITALS: BP 109/54
[2017-05-24] MEDS: AMOXICILLIN/POTASSIUM CLAVULANATE 875/125MG TAB PO SCH ×2 (08:33→21:44)
[2017-05-24] MEDS: MULTIVITAMINS,THER W-MINERALS TABLET PO SCH (08:33)
[2017-05-24 12:00] VITALS: BP 111/64
[2017-05-24 16:00] VITALS: BP 110/62
[2017-05-24] MEDS ORDERED: WARFARIN SODIUM 5MG TABLET PO NR (18:00)
[2017-05-24] MEDS ORDERED: WARFARIN SODIUM 7.5MG TABLET PO NR (18:00)
[2017-05-24 20:00] VITALS: BP 123/65
[2017-05-25] VITALS: BP 120/73
[2017-05-25 04:00] VITALS: BP 99/63
[2017-05-25] MEDS: OXYCODONE HCL 10MG TABLET SR 12HR PO SCH ×3 (05:30→21:24)
[2017-05-25 06:50] LABS: INR 2.1; PROTHROMBIN TIME 21.8 sec
[2017-05-25 06:51] LABS: BASOPHILS % 1.4 % (0.0-2.0); EOSINOPHILS % 5.5 % (0.0-5.0); HEMATOCRIT. 36.9 % (36.0-48.0); HEMOGLOBIN. 11.8 g/dL (12.0-16.0); MEAN CORPUSCULAR VOLUME 84.2 fL (81.0-99.0); MEAN PLATELET VOLUME 7.8 fl (7.4-10.4); MONOCYTES % 10.9 % (2.0-8.0); NEUTROPHILS % 43.2 % (40.0-76.0); PLATELET 496 x1000/uL (130-400); RED BLOOD CELL COUNT 4.38 mill/uL (4.2-5.4)
[2017-05-25] MEDS: DIPHENHYDRAMINE 50MG CAPSULE PO PRN (07:43)
[2017-05-25] MEDS: AMOXICILLIN/POTASSIUM CLAVULANATE 875/125MG TAB PO SCH ×2 (07:43→21:24)
[2017-05-25] MEDS: MULTIVITAMINS,THER W-MINERALS TABLET PO SCH (07:43)
[2017-05-25 08:00] VITALS: BP_SYST 95; BP_SYST 98; BP_DIAS 50
[2017-05-25 12:00] VITALS: BP 95/50
[2017-05-25] MEDS: LACTOBACILLUS GG CAPSULE PO SCH (13:49)
[2017-05-25 16:00] VITALS: BP 114/72
[2017-05-25] MEDS ORDERED: WARFARIN SODIUM 7.5MG TABLET PO NR (18:00)
[2017-05-25 20:00] VITALS: BP 104/63
[2017-05-25] MEDS ORDERED: OXYCODONE HCL 10MG TABLET SR 12HR PO SCH (22:00)
[2017-05-26] VITALS: BP 116/65
[2017-05-26 04:00] VITALS: BP 104/57
[2017-05-26] MEDS: OXYCODONE HCL 10MG TABLET SR 12HR PO SCH ×2 (05:51→13:41)
[2017-05-26 06:35] LABS: INR 2.3; PROTHROMBIN TIME 23.9 sec
[2017-05-26] MEDS: AMOXICILLIN/POTASSIUM CLAVULANATE 875/125MG TAB PO SCH (09:16)
[2017-05-26] MEDS: MULTIVITAMINS,THER W-MINERALS TABLET PO SCH (09:16)
[2017-05-26] MEDS: LACTOBACILLUS GG CAPSULE PO SCH (09:17)
[2017-05-26 13:41] VITALS: BP 104/57
[2017-05-26] MEDS ORDERED: WARFARIN SODIUM 7.5MG TABLET PO SCH (18:00)
== END 2017-05-26 14:30 | disposition left against medical advice (07) | DRG 720 ==
LOC: ER 13:41 → 6WST 14:27 → EDBEDREQ 14:46 → ENRESERV 19:28 → 6EST 05-07 15:49
PROVIDERS: ADMIT Hospitalist; ATTEND Hospitalist
PROC: 02HV33Z Insertion of Infusion Device into Superior Vena Cava, Percutaneous Approach (ICD-10-PCS; principal; 2017-04-11)
PROC: B5181ZA Fluoroscopy of Superior Vena Cava using Low Osmolar Contrast, Guidance (ICD-10-PCS; 2017-04-11)
PROC: B548ZZA Ultrasonography of Superior Vena Cava, Guidance (ICD-10-PCS; 2017-04-11)
DX: A41.9 Sepsis, unspecified organism (principal); E43 Unspecified severe protein-calorie malnutrition; D68.59 Other primary thrombophilia; G82.20 Paraplegia, unspecified; D64.9 Anemia, unspecified; S31.829A Unspecified open wound of left buttock, initial encounter; L89.90 Pressure ulcer of unspecified site, unspecified stage; M86.9 Osteomyelitis, unspecified; Z53.21 Procedure and treatment not carried out due to patient leaving prior to being seen by health care provider; X58.XXXA Exposure to other specified factors, initial encounter; N39.0 Urinary tract infection, site not specified; Z86.718 Personal history of other venous thrombosis and embolism; Z68.36 Body mass index [BMI] 36.0-36.9, adult; Z93.3 Colostomy status; Z86.711 Personal history of pulmonary embolism; Z59.0 Homelessness; Y93.89 Activity, other specified; Y92.89 Other specified places as the place of occurrence of the external cause; Y99.8 Other external cause status
CPT/HCPCS: 36415; 36569; 71010; 72170; 76937; 77001; 80048; 80053; 81001; 83605; 84703; 85025; 85027; 85610; 85651; 86140; 87040; 87077; 87086; 87186; 87493; 93005; 93970; 96365; 96367; 96375; 97163; 97166; 97530; 97535; 99291; C1725; C1893; J1650; J2270; J2405; J2543; J3490; J7030; J7040; J7042; J7060; Q0163; A4315